=== PATIENT | male | born 1985 | race African-American/Black ===

== ENCOUNTER 2018-11-26 12:30 | Emergency (ER) | payer OTHER ==
[2018-11-26] MEDS ORDERED: LIDOCAINE 5% (700 MG) TRANSDERMAL ADH..PATCH TP ONE (14:06)
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
[2018-11-26 14:20] VITALS: BP 110/69
--- NOTE | 2018-11-26 14:28 | EKG REPORT ---
SEVERITY:- ABNORMAL ECG - SINUS BRADYCARDIA ST ELEVATION SUGGESTS PERICARDITIS VS NORMAL VARIANT, CLINICAL CORRELATION NEEDED. : Confirmed by: Say Herring MD 26-Nov-2018 14:27:49
== END 2018-11-26 14:23 | disposition home or self-care (01) ==
LOC: ER 12:30
DX: S39.012A Strain of muscle, fascia and tendon of lower back, initial encounter (principal); R07.89 Other chest pain; V49.50XA Passenger injured in collision with unspecified motor vehicles in traffic accident, initial encounter; F17.200 Nicotine dependence, unspecified, uncomplicated; R00.0 Tachycardia, unspecified
CPT/HCPCS: 93005; 93010; 99283